=== PATIENT | male | born 1970 | race Caucasian/White ===

== ENCOUNTER 2018-01-13 19:44 | Emergency (ER) | payer SELFPAY ==
[~2018-01-13] VITALS: Ht 188 cm; Wt 93.0 kg
[~2018-01-13 19:44] MED LIST: BACTRIM DS1 TAB PO; FIORICET PO; FLEXERIL OR; FLEXERIL10 MG PO; IMODIUM2 MG PO; LORTAB 7.5 OR; LORTAB5 OR; MEDDOSEPAK PO; NAPROSYN500 MG OR; NAPROSYN500 MG PO; NO MEDS; TRAMADOL HCL50 MG PO; TYLENOL # 31 TA1 PO; ULTRAM50 MG OR; ULTRAM50 MG PO
[2018-01-13] MEDS ORDERED: SEROQUEL100 MG PO (20:16)
[2018-01-13 20:34] VITALS: BP 117/83
== END 2018-01-13 20:40 | disposition home or self-care (01) | DRG 605 ==
LOC: ED 19:44
DX: S61.511A Laceration without foreign body of right wrist, initial encounter (principal); X58.XXXA Exposure to other specified factors, initial encounter

== ENCOUNTER 2018-07-29 09:13 | Emergency (ER) | payer SELFPAY ==
[~2018-07-29] VITALS: Ht 188 cm; Wt 100.0 kg
[~2018-07-29 09:13] MED LIST changes: +SEROQUEL100 MG PO
[2018-07-29 09:33] LABS: HEMATOCRIT 43.2 % (39.0-50.0); IMMATURE GRANULOCYTES 0.3 % (0.0-5.0); MEAN CELL VOLUME 92.5 fL CALC (80.0-100.0); MEAN CORPUSCULAR HGB 31.5 pG CALC (26.0-32.0); NEUT# 5.3 thou/uL (1.82-7.42); RED BLOOD COUNT 4.67 mill/uL (4.70-6.10); RED CELL DISTRI WIDTH 13.5 % (11.5-15.5)
[2018-07-29 09:35] LABS: HEMOGLOBIN 14.7 g/dl (14.0-18.0)
[2018-07-29 10:06] LABS: INTERNATIONAL NORMALIZED RATIO 1.1 RATIO (0.7-1.3); PROTHROMBIN TIME 11.5 SECONDS (9.0-12.5)
[2018-07-29 10:26] LABS: ANION GAP 14 (6-22 (CALC)); BUN 24 mg/dL (9-20); BUN/CREATININE RATIO 16 (12-20 (CALC)); CARBON DIOXIDE 22 mmol/l (22-30); CHLORIDE 110 mmol/l (95-108); CREATININE 1.5 mg/dL (0.7-1.3); GFR 50 ML/MIN (>=60 (CALC)); GFR FOR AFR.AMER. > 60 ML/MIN (>=60 (CALC)); LIPASE 404 u/l (23-300); POTASSIUM 4.9 mmol/l (3.5-5.1); SODIUM 140 mmol/l (137-146)
[2018-07-29 11:29] LABS: URINE BILIRUBIN - DIPSTICK NEGATIVE (NEGATIVE); URINE BLOOD DIPSTICK NEGATIVE (NEGATIVE); URINE COLOR YELLOW; URINE GLUCOSE - DIPSTICK NEGATIVE (NEGATIVE); URINE KETONE NEGATIVE (NEGATIVE); URINE LEUK ESTERASE NEGATIVE (NEGATIVE); URINE NITRITE - DIPSTICK NEGATIVE (Negative); URINE PROTEIN - DIPSTICK NEGATIVE (NEG-TRACE); URINE SPECIFIC GRAVITY >=1.030; URINE UROBILINOGEN - DIPSTICK 0.2 E.U./dL (0.2)
[2018-07-29 11:40] LABS: BARBITURATES NEGATIVE (NEGATIVE); COCAINE POSITIVE (NEGATIVE); METHADONE NEGATIVE (NEGATIVE); OXCYCODONE NEGATIVE (NEGATIVE); TETRAHYDROCANNABIONOL POSITIVE (NEGATIVE); TRICYLIC ANTIDEPRESSANTS NEGATIVE (NEGATIVE)
[2018-07-29 12:41] VITALS: BP 115/87
== END 2018-07-29 12:42 | disposition short-term general hospital (02) | DRG 947 ==
LOC: ED 09:13
PROVIDERS: Family Medicine
PROC: 05HM33Z Insertion of Infusion Device into Right Internal Jugular Vein, Percutaneous Approach (ICD-10-PCS; principal; 2018-07-29)
PROC: 0BH17EZ Insertion of Endotracheal Airway into Trachea, Via Natural or Artificial Opening (ICD-10-PCS; 2018-07-29)
PROC: 0T9B70Z Drainage of Bladder with Drainage Device, Via Natural or Artificial Opening (ICD-10-PCS; 2018-07-29)
DX: R41.82 Altered mental status, unspecified (principal); J18.9 Pneumonia, unspecified organism; I48.2 Chronic atrial fibrillation; F14.10 Cocaine abuse, uncomplicated; F12.10 Cannabis abuse, uncomplicated; R20.2 Paresthesia of skin; R06.02 Shortness of breath; R53.1 Weakness
CPT/HCPCS: Q9967

== ENCOUNTER 2018-08-29 21:03 | Emergency (ER) | payer SELFPAY ==
[~2018-08-29] VITALS: Ht 190.5 cm; Wt 81.4 kg
[2018-08-29] MEDS ORDERED: LANOXIN0.125 MG PO (21:41)
[2018-08-29] MEDS ORDERED: LOSARTAN POTASS25 MG PO (21:41)
[2018-08-29] MEDS ORDERED: WARFARIN7.5 MG PO (21:42)
[2018-08-29] MEDS ORDERED: SPIRONOLACTONE25 MG PO (21:42)
[2018-08-29] MEDS ORDERED: FAMOTIDINE20 M1 PO (21:42)
[2018-08-29 21:45] VITALS: BP 109/57
== END 2018-08-29 21:47 | disposition home or self-care (01) | DRG 594 ==
LOC: ED 21:03
DX: L89.152 Pressure ulcer of sacral region, stage 2 (principal); I50.9 Heart failure, unspecified

== ENCOUNTER 2018-09-16 20:25 | Emergency (ER) | payer OTHER ==
[~2018-09-16] VITALS: Ht 190.5 cm; Wt 90.0 kg
[~2018-09-16 20:25] MED LIST changes: +FAMOTIDINE20 M1 PO; +LANOXIN0.125 MG PO; +LOSARTAN POTASS25 MG PO; +SPIRONOLACTONE25 MG PO; +WARFARIN7.5 MG PO
[2018-09-16] MEDS ORDERED: ESCITALOPRAM OXA5 MG PO (21:01)
[2018-09-16] MEDS ORDERED: METOPROLOL SUCC50 MG PO (21:01)
[2018-09-16 21:21] LABS: HEMATOCRIT 43.3 % (39.0-50.0); HEMOGLOBIN 14.5 g/dl (14.0-18.0); IMMATURE GRANULOCYTES 0.4 % (0.0-5.0); MEAN CELL VOLUME 93.5 fL CALC (80.0-100.0); MEAN CORPUSCULAR HGB 31.3 pG CALC (26.0-32.0); MEAN CORPUSCULAR HGB CONC 33.5 g/L CALC (32.0-36.0); NEUT# 4.64 thou/uL (1.82-7.42); RED BLOOD COUNT 4.63 mill/uL (4.70-6.10); RED CELL DISTRI WIDTH 14.8 % (11.5-15.5)
[2018-09-16 21:36] LABS: ALBUMIN 4.6 g/dL (3.2-5.0); ALKALINE PHOSPHATASE 66 u/l (38-126); ANION GAP 15 (6-22 (CALC)); BILIRUBIN, TOTAL 0.9 mg/dL (0.0-1.4); BUN 24 mg/dL (9-20); BUN/CREATININE RATIO 17 (12-20 (CALC)); CARBON DIOXIDE 24 mmol/l (22-30); CHLORIDE 104 mmol/l (95-108); CREATININE 1.4 mg/dL (0.7-1.3); GFR 54 ML/MIN (>=60 (CALC)); GFR FOR AFR.AMER. > 60 ML/MIN (>=60 (CALC)); POTASSIUM 4.4 mmol/l (3.5-5.1); SGOT/AST 35 u/l (17-59); SODIUM 139 mmol/l (137-146); TOTAL PROTEIN 7.4 g/dL (6.3-8.2)
[2018-09-16 21:48] LABS: MYOGLOBIN 51 ng/mL (0 - 121)
[2018-09-16 23:30] VITALS: BP 102/76
[2018-09-16 23:43] LABS: URINE BILIRUBIN - DIPSTICK NEGATIVE (NEGATIVE); URINE BLOOD DIPSTICK NEGATIVE (NEGATIVE); URINE COLOR YELLOW; URINE GLUCOSE - DIPSTICK NEGATIVE (NEGATIVE); URINE KETONE NEGATIVE (NEGATIVE); URINE LEUK ESTERASE NEGATIVE (NEGATIVE); URINE NITRITE - DIPSTICK NEGATIVE (Negative); URINE PROTEIN - DIPSTICK NEGATIVE (NEG-TRACE)
[2018-09-16 23:46] LABS: BARBITURATES NEGATIVE (NEGATIVE); COCAINE NEGATIVE (NEGATIVE); METHADONE NEGATIVE (NEGATIVE); TETRAHYDROCANNABIONOL POSITIVE (NEGATIVE); TRICYLIC ANTIDEPRESSANTS NEGATIVE (NEGATIVE)
[2018-09-16 23:47] LABS: OXCYCODONE NEGATIVE (NEGATIVE)
== END 2018-09-16 23:56 | disposition left against medical advice (07) ==
LOC: ED 20:25
PROVIDERS: Emergency Medicine
DX: R55 Syncope and collapse (principal); R42 Dizziness and giddiness; I48.91 Unspecified atrial fibrillation; R94.31 Abnormal electrocardiogram [ECG] [EKG]; Z91.19 Patient's noncompliance with other medical treatment and regimen; Z95.5 Presence of coronary angioplasty implant and graft

== ENCOUNTER 2024-06-09 06:28 | Emergency (ER) | payer OTHER ==
[~2024-06-09] VITALS: Ht 190.5 cm; Wt 89.0 kg
[~2024-06-09 06:28] MED LIST changes: +ESCITALOPRAM OXA5 MG PO; +METOPROLOL SUCC50 MG PO
[2024-06-09 07:09] VITALS: BP 126/92
[2024-06-09 07:16] VITALS: BP 122/92
[2024-06-09 07:30] VITALS: BP 120/89
[2024-06-09] MEDS ORDERED: TYLENOL # 31 TA1 PO (07:31)
[2024-06-09] MEDS ORDERED: AMOX/K CLAV875 M1 PO (07:31)
[2024-06-09] MEDS ORDERED: Acetaminophen 300 MG/Codeine 30 MG/COMBO PO ONE (07:35)
[2024-06-09] MEDS ORDERED: AMOXICILLIN & POT CLAVULANATE 875 MG/TAB PO ONE (07:35)
[2024-06-09 07:45] VITALS: BP 132/98
[2024-06-09 07:58] VITALS: BP 132/98
== END 2024-06-09 07:58 | disposition home or self-care (01) | DRG 159 ==
LOC: ED 06:28
DX: K05.10 Chronic gingivitis, plaque induced (principal); S02.5XXA Fracture of tooth (traumatic), initial encounter for closed fracture; I48.91 Unspecified atrial fibrillation; I50.9 Heart failure, unspecified; X58.XXXA Exposure to other specified factors, initial encounter; Z79.01 Long term (current) use of anticoagulants